=== PATIENT | female | born 2000 | race Hispanic/Latino ===

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

== ENCOUNTER → 2023-03-14 | Outpatient (CLI) | payer OTHER ==
[~2023-03-14] MED LIST: ISOVUE-300 61% 100ML VIAL As Ordered ONE; LIDOCAINE 1% MDV 20ML VIAL As Ordered ONE; ONDA4TAB6 PO; TRIAMCINOLONE ACETONIDE SUSP 40MG/ML 1ML VIAL As Ordered ONE
== END ==
LOC: M RAD 15:29
PROVIDERS: ATTEND Physician Assistant Surgical
DX: S73.122A Ischiocapsular ligament sprain of left hip, initial encounter (principal); X58.XXXA Exposure to other specified factors, initial encounter; Y92.9 Unspecified place or not applicable
CPT/HCPCS: 20610; 77002; J3301; Q9967

== ENCOUNTER → 2023-03-20 | Outpatient (CLI) | payer OTHER | LOC: M RAD 14:26 | PROVIDERS: ATTEND Physician Assistant Surgical | DX: S73.121A Ischiocapsular ligament sprain of right hip, initial encounter (principal); X58.XXXA Exposure to other specified factors, initial encounter; Y92.9 Unspecified place or not applicable | CPT/HCPCS: 20610; 77002; J3301; Q9967 ==

== ENCOUNTER 2023-05-03 09:44 | Inpatient (IN) | payer OTHER ==
[~2023-05-03] VITALS: Ht 162.6 cm; Wt 68.2 kg
[~2023-05-03 09:44] MED LIST changes: -ISOVUE-300 61% 100ML VIAL As Ordered ONE; -LIDOCAINE 1% MDV 20ML VIAL As Ordered ONE; -TRIAMCINOLONE ACETONIDE SUSP 40MG/ML 1ML VIAL As Ordered ONE
[2023-05-03] MEDS ORDERED: D 50CAP2 PO (10:07)
[2023-05-03] MEDS ORDERED: BUSP10TA PO (10:07)
[2023-05-03] MEDS ORDERED: MED REC IN PROGRESS XX SCH (10:25)
[2023-05-03] MEDS ORDERED: HOME MED LIST COMPLETE! XX SCH (10:50)
[2023-05-03 10:54] LABS: HEMATOCRIT 40.7 % (36.0-47.0); HEMOGLOBIN 13.2 g/dl (12.0-15.5); MEAN CORPUSCULAR HEMOGLOBIN 26.8 pg (27.0-33.0); MEAN CORPUSCULAR HGB CONC 32.4 g/dl (32.0-36.5); MEAN CORPUSCULAR VOLUME 82.6 fl (80.0-96.0); PLATELET COUNT, AUTOMATED 280 10^3/uL (150-450); RED BLOOD COUNT 4.93 10^6/uL (4.00-5.40); WHITE BLOOD COUNT 8.7 10^3/uL (4.0-10.0)
[2023-05-03 11:25] LABS: THYROID STIMULATING HORMONE 1.586 uIU/ML (0.55-4.78)
[2023-05-03 11:30] LABS: ETHYL ALCOHOL (ETHANOL) < 0.003 % (0.000-0.010)
[2023-05-03 11:32] LABS: ALBUMIN 3.8 G/DL (3.2-5.2); ALKALINE PHOSPHATASE 61 U/L (46-116); ALT/SGPT 33 U/L (7.0-40); AST/SGOT 18 U/L (<34); BILIRUBIN,DIRECT 0.1 MG/DL (<0.4); BILIRUBIN,TOTAL 0.4 MG/DL (0.3-1.2); BLOOD UREA NITROGEN 7 MG/DL (9-23); CALCIUM LEVEL 9.1 MG/DL (8.5-10.1); CARBON DIOXIDE LEVEL 18 MMOL/L (20-31); CHLORIDE LEVEL 109 MMOL/L (98-107); CREATININE FOR GFR 0.46 MG/DL (0.55-1.30); GLOMERULAR FILTRATION RATE > 60.0 (>60); GLUCOSE, FASTING 99 MG/DL (60-100); POTASSIUM SERUM 4.4 MMOL/L (3.5-5.1); SALICYLATE LEVEL < 3.0 MG/DL (<30); SODIUM LEVEL 141 MMOL/L (136-145); TOTAL PROTEIN 7.4 G/DL (5.7-8.2)
[2023-05-03] MEDS ORDERED: IBUPROFEN 400MG TAB PO PRN (11:45)
[2023-05-03] MEDS ORDERED: MOM 30ML SUSPENSION UDC PO PRN (11:45)
[2023-05-03] MEDS ORDERED: diphenhydrAMINE 25MG CAP PO PRN (11:45)
[2023-05-03] MEDS ORDERED: OLANZapine ORAL DISINTEGRATING TAB 5MG PO PRN (11:45)
[2023-05-03] MEDS ORDERED: MAALOX 30 ML SUSP *UDC PO PRN (11:45)
[2023-05-03] MEDS ORDERED: ACETAMINOPHEN TAB 650MG DOSE (2X325MG) PO PRN (11:45)
[2023-05-03 12:11] LABS: HCG, SERUM QUALITATIVE NEGATIVE (NEGATIVE)
[2023-05-03 13:51] LABS: AMPHETAMINES LEVEL URINE NEGATIVE (NEGATIVE); BARBITURATES URINE NEGATIVE (NEGATIVE); BENZODIAZEPINES URINE NEGATIVE (NEGATIVE); CANNABINOIDS URINE NEGATIVE (NEGATIVE); COCAINE METABOLITE URINE NEGATIVE (NEGATIVE); METHADONE URINE NEGATIVE (NEGATIVE); OPIATES URINE NEGATIVE (NEGATIVE); PHENCYCLIDINE URINE NEGATIVE (NEGATIVE)
[2023-05-03 16:08] VITALS: BP 107/52; TEMP 98.4; O2SAT 100
[2023-05-03] MEDS: traZODone 50 MG TAB PO PRN (20:11)
[2023-05-04 06:42] VITALS: BP 97/52; TEMP 98.4; O2SAT 100
[2023-05-04] MEDS ORDERED: hydrOXYzine 50 MG TAB PO PRN (11:30)
[2023-05-04] MEDS ORDERED: busPIRone 5 MG TAB PO PRN (11:30)
[2023-05-04] MEDS: SERTRALINE HCL 50 MG TAB PO SCH (12:23)
[2023-05-04 16:06] LABS: BLOOD UREA NITROGEN 11 MG/DL (9-23); CARBON DIOXIDE LEVEL 27 MMOL/L (20-31); CHLORIDE LEVEL 106 MMOL/L (98-107); CREATININE FOR GFR 0.51 MG/DL (0.55-1.30); GLOMERULAR FILTRATION RATE > 60.0 (>60); GLUCOSE, FASTING 87 MG/DL (60-100); POTASSIUM SERUM 3.9 MMOL/L (3.5-5.1); SODIUM LEVEL 141 MMOL/L (136-145)
[2023-05-04 16:09] VITALS: BP 110/58; TEMP 98.3; O2SAT 100
[2023-05-04] MEDS: traZODone 50 MG TAB PO PRN (20:27)
[2023-05-04] MEDS: PRAZOSIN 1 MG CAP PO SCH (20:28)
[2023-05-05 06:08] VITALS: BP 120/64; TEMP 98.6; O2SAT 98
[2023-05-05] MEDS: SERTRALINE HCL 50 MG TAB PO SCH (08:09)
[2023-05-05 16:53] VITALS: BP 116/59; TEMP 97.7
[2023-05-05] MEDS: PRAZOSIN 1 MG CAP PO SCH (20:16)
[2023-05-05] MEDS: traZODone 50 MG TAB PO PRN (20:16)
[2023-05-06 05:54] VITALS: BP 111/59; TEMP 98.4; O2SAT 97
[2023-05-06] MEDS: SERTRALINE HCL 50 MG TAB PO SCH (08:31)
[2023-05-06 18:09] VITALS: BP 124/63; TEMP 98.9
[2023-05-06 20:21] VITALS: BP 132/61
[2023-05-06] MEDS: traZODone 50 MG TAB PO PRN (20:22)
[2023-05-06] MEDS: PRAZOSIN 1 MG CAP PO SCH (20:22)
[2023-05-07 06:19] VITALS: BP 104/53; TEMP 97.9; O2SAT 99
[2023-05-07] MEDS: SERTRALINE HCL 50 MG TAB PO SCH (08:15)
[2023-05-07] MEDS: traZODone 50 MG TAB PO PRN (21:13)
[2023-05-07 21:14] VITALS: BP 118/80
[2023-05-07] MEDS: PRAZOSIN 1 MG CAP PO SCH (21:14)
[2023-05-08 06:39] VITALS: BP 111/57; TEMP 96.5; O2SAT 98
[2023-05-08] MEDS: SERTRALINE HCL 50 MG TAB PO SCH (09:15)
[2023-05-08] MEDS ORDERED: TRAZ-252 PO (09:22)
[2023-05-08] MEDS ORDERED: MINI1CAP PO (09:22)
[2023-05-08] MEDS ORDERED: BUSP10TA PO (09:22)
[2023-05-08] MEDS ORDERED: SERT50TA29 PO (09:22)
== END 2023-05-08 10:34 | disposition home or self-care (01) | DRG 885 ==
LOC: M ED 09:44 → EDBD 09:44 → M ED INP 11:59 → M PSY 16:04
PROVIDERS: ADMIT Student in an Organized Health Care Education/Training Program; ATTEND Student in an Organized Health Care Education/Training Program
DX: F31.9 Bipolar disorder, unspecified (principal); R45.851 Suicidal ideations; E87.20 Acidosis, unspecified; F32.A Depression, unspecified; F60.3 Borderline personality disorder; F60.89 Other specific personality disorders; Z79.899 Other long term (current) drug therapy

== ENCOUNTER 2023-09-25 08:22 | Emergency (ER) | payer OTHER ==
[~2023-09-25] VITALS: Ht 162.6 cm; Wt 72.2 kg
[~2023-09-25 08:22] MED LIST changes: +BUSP10TA PO; +D 50CAP2 PO; +MINI1CAP PO; +SERT50TA29 PO; +TRAZ-252 PO
[2023-09-25] MEDS ORDERED: LEXA5TAB13 PO (08:39)
[2023-09-25 11:04] VITALS: BP 141/90; TEMP 97.7; O2SAT 100
== END 2023-09-25 11:06 | disposition home or self-care (01) ==
LOC: M ED 08:22
DX: J09.X2 Influenza due to identified novel influenza A virus with other respiratory manifestations (principal); F41.9 Anxiety disorder, unspecified; F17.200 Nicotine dependence, unspecified, uncomplicated; Z79.899 Other long term (current) drug therapy